=== PATIENT | female | born 1980 | race Asian ===

== ENCOUNTER 2017-05-29 11:56 | Emergency (ER) | payer SELFPAY ==
[~2017-05-29] VITALS: Ht 170.2 cm; Wt 68.0 kg
[2017-05-29 12:18] VITALS: BP_SYST 120
[2017-05-29] MEDS ORDERED: CEPHALEXIN 500 MG CAPSULE PO ONE (14:15)
[2017-05-29] MEDS ORDERED: DIPH-TET-PERTUS Vaccine 0.5 ML VIAL (ADACEL) I.M. ONE (14:15)
[2017-05-29 14:20] VITALS: BP_SYST 120
== END 2017-05-29 14:20 | disposition home or self-care (01) ==
LOC: SED 11:56
DX: L03.114 Cellulitis of left upper limb (principal); R03.0 Elevated blood-pressure reading, without diagnosis of hypertension
CPT/HCPCS: 90715; 99283

== ENCOUNTER 2017-08-27 13:31 | Emergency (ER) | payer MEDICAID ==
[~2017-08-27] VITALS: Ht 170.2 cm; Wt 68.0 kg
[2017-08-27 13:31] VITALS: BP_SYST 120
[2017-08-27 13:58] LABS: BILIRUBIN,URINE NEGATIVE (NEGATIVE); BLOOD, URINE 2+ (NEGATIVE); COLOR,URINE ORANGE (YELLOW); GLUCOSE,URINE 1+ (NEGATIVE); LEUKOCYTE ESTERASE ,URINE 2+ (NEGATIVE)
[2017-08-27 14:08] LABS: UROBILINOGEN,URINE >=8 (0.2-1.0)
[2017-08-27 14:09] LABS: CLARITY/URINE HAZY (CLEAR); KETONES,URINE NEGATIVE (NEGATIVE); NITRITE, URINE NEGATIVE (NEGATIVE); PROTEIN URINE NEGATIVE (NEGATIVE)
[2017-08-27 14:10] LABS: BACTERIA,URINE FEW /HPF (None Seen); MUCUS,URINE None Seen /LPF (None Seen); WBC,URINE 20-50 /HPF (0-3)
[2017-08-27 14:25] VITALS: BP_SYST 120
== END 2017-08-27 14:25 | disposition home or self-care (01) ==
LOC: SED 13:31
DX: N30.00 Acute cystitis without hematuria (principal); R03.0 Elevated blood-pressure reading, without diagnosis of hypertension; Z90.49 Acquired absence of other specified parts of digestive tract
CPT/HCPCS: 81000-TC; 81025; 87086; 87186-TC; 99284

== ENCOUNTER 2017-11-06 11:02 | Emergency (ER) | payer MEDICAID ==
[~2017-11-06] VITALS: Ht 170.2 cm; Wt 65.8 kg
[2017-11-06 11:12] VITALS: BP_SYST 133
[2017-11-06] MEDS ORDERED: cefTRIAXone 1 GM VIAL IM ONE (11:45)
[2017-11-06 13:00] VITALS: BP_SYST 133
== END 2017-11-06 12:59 | disposition home or self-care (01) ==
LOC: SED 11:02
DX: S50.861A Insect bite (nonvenomous) of right forearm, initial encounter (principal); L50.9 Urticaria, unspecified; W57.XXXA Bitten or stung by nonvenomous insect and other nonvenomous arthropods, initial encounter; Y93.89 Activity, other specified; Y92.89 Other specified places as the place of occurrence of the external cause; Y99.8 Other external cause status
CPT/HCPCS: 96372; 99283; J0696

== ENCOUNTER 2017-11-20 15:44 | Emergency (ER) | payer MEDICAID ==
[~2017-11-20] VITALS: Ht 170.2 cm; Wt 65.8 kg
[2017-11-20 16:13] VITALS: BP_SYST 120
--- NOTE | 2017-11-20 17:49 | NUR ---
Patient to ER bed 07 to gown for evaluation. Side rails up.
--- NOTE | 2017-11-20 18:00 | NUR ---
Pt AAOx4 ambulated into ED c/o redness and swelling to L thigh s/p bug bite. Pt denies taking medication. No other injuries/complaints per pt/noted. Will continue to monitor.
--- NOTE | 2017-11-20 18:01 | NUR ---
ER DANIKA Schneider examining patient.
--- NOTE | 2017-11-20 18:02 | NUR ---
Patient given written and verbal discharge instructions and verbalizes understanding. ER [employer] Jenine discussed with patient the results and treatment provided. Patient in stable condition. ID arm band removed. Rx of Hydrocortisone Acetate, Keflex, Benadryl given. Patient educated on pain management and to follow up with PMD. Pain Scale 0. Opportunity for questions provided and answered. Medication side effect fact sheet provided.
[2017-11-20 18:05] VITALS: BP_SYST 119
== END 2017-11-20 18:05 | disposition home or self-care (01) ==
LOC: SED 15:44
DX: S80.862A Insect bite (nonvenomous), left lower leg, initial encounter (principal); L03.116 Cellulitis of left lower limb; W57.XXXA Bitten or stung by nonvenomous insect and other nonvenomous arthropods, initial encounter; Y93.89 Activity, other specified; Y92.89 Other specified places as the place of occurrence of the external cause; Y99.8 Other external cause status
CPT/HCPCS: 99283

== ENCOUNTER 2018-03-19 18:15 | Emergency (ER) | payer MEDICAID ==
[2018-03-20 14:01] LABS: CLARITY/URINE CLOUDY (CLEAR); COLOR,URINE ORANGE (YELLOW); GLUCOSE,URINE NEGATIVE (NEGATIVE); KETONES,URINE TRACE (NEGATIVE); PH,URINE 6.5 (5.0-8.0); PROTEIN URINE 1+ (NEGATIVE)
[2018-03-20 14:02] LABS: BILIRUBIN,URINE NEGATIVE (NEGATIVE); BLOOD, URINE 3+ (NEGATIVE); LEUKOCYTE ESTERASE ,URINE 1+ (NEGATIVE); NITRITE, URINE POSITIVE (NEGATIVE)
[2018-03-20 14:03] LABS: BACTERIA,URINE MODERATE /HPF (None Seen); RBC,URINE >100 /HPF (0-3); WBC,URINE 80-100 /HPF (0-3); YEAST,URINE Few /HPF (None Seen)
== END 2018-03-19 20:00 | disposition home or self-care (01) ==
LOC: SED 18:15
DX: R10.30 Lower abdominal pain, unspecified (principal); Z90.49 Acquired absence of other specified parts of digestive tract
CPT/HCPCS: 81000-TC; 87086; 87186-TC; 99283

== ENCOUNTER 2018-04-12 19:37 | Emergency (ER) | payer MEDICAID ==
[~2018-04-12] VITALS: Ht 170.2 cm; Wt 70.3 kg
[2018-04-12 19:45] VITALS: BP_SYST 127
--- NOTE | 2018-04-12 19:50 | NUR ---
ER Dr. Cevallos at bedside examining patient.
[2018-04-12] MEDS ORDERED: NACL 0.9% 1,000 ML IV ONE (20:00)
[2018-04-12] MEDS ORDERED: DEXAMETHASONE SOD PHOSPHATE 10 MG/ML VIAL IVP ONE (20:00)
--- NOTE | 2018-04-12 20:32 | NUR ---
Patient to ER bed 5 to gown for evaluation. Side rails up. Report given to ISMAEL FOX.
--- NOTE | 2018-04-12 20:33 | NUR ---
Pt came in to ED C/O hives / rashes all over body, more significant R Upper body. VSS, No S/S of acute distress. No other injuries and complaints noted or observed. Resting on gurney with rails up
[2018-04-12 20:47] VITALS: BP_SYST 127
--- NOTE | 2018-04-12 20:47 | NUR ---
Patient given written and verbal discharge instructions and verbalizes understanding. ER MD discussed with patient the results and treatment provided. Patient in stable condition. ID arm band removed. Rx of Medrol given. Patient educated on pain management and to follow up with PMD. Pain Scale 0/10. Opportunity for questions provided and answered. Medication side effect fact sheet provided.
== END 2018-04-12 20:47 | disposition home or self-care (01) ==
LOC: SED 19:37
DX: L50.9 Urticaria, unspecified (principal); Z80.3 Family history of malignant neoplasm of breast; Z90.49 Acquired absence of other specified parts of digestive tract
CPT/HCPCS: 81025; 93005; 99283; J1100

== ENCOUNTER 2018-08-01 18:39 | Emergency (ER) | payer MEDICAID ==
[~2018-08-01] VITALS: Ht 170.2 cm; Wt 70.3 kg
[2018-08-01 18:50] VITALS: BP_SYST 136
[2018-08-01 20:02] VITALS: BP_SYST 118
[2018-08-05] MEDS ORDERED: DIPHENHYDRAMINE INJ 50 MG/ML VIAL IM ONE (15:45)
== END 2018-08-01 20:02 | disposition home or self-care (01) ==
LOC: SED 18:39
DX: S80.862A Insect bite (nonvenomous), left lower leg, initial encounter (principal); S80.861A Insect bite (nonvenomous), right lower leg, initial encounter; L03.116 Cellulitis of left lower limb; L03.115 Cellulitis of right lower limb; R03.0 Elevated blood-pressure reading, without diagnosis of hypertension; Z90.49 Acquired absence of other specified parts of digestive tract; W57.XXXA Bitten or stung by nonvenomous insect and other nonvenomous arthropods, initial encounter; Y93.89 Activity, other specified; Y92.096 Garden or yard of other non-institutional residence as the place of occurrence of the external cause; Y99.8 Other external cause status
CPT/HCPCS: 81025; 99283

== ENCOUNTER 2018-12-31 17:57 | Emergency (ER) | payer MEDICAID ==
[~2018-12-31] VITALS: Ht 167.6 cm; Wt 74.8 kg
[2018-12-31 18:40] VITALS: BP_SYST 124
[2018-12-31] MEDS ORDERED: IBUPROFEN 600 MG TABLET PO ONE (20:30)
[2018-12-31 21:17] LABS: HCG,QUAL RESULT NEGATIVE (NEGATIVE)
[2018-12-31 21:22] VITALS: BP_SYST 126
[2018-12-31 21:23] LABS: BILIRUBIN,URINE NEGATIVE (NEGATIVE); BLOOD, URINE NEGATIVE (NEGATIVE); CLARITY/URINE CLEAR (CLEAR); COLOR,URINE YELLOW (YELLOW); GLUCOSE,URINE NEGATIVE (NEGATIVE); KETONES,URINE NEGATIVE (NEGATIVE); LEUKOCYTE ESTERASE ,URINE 1+ (NEGATIVE); NITRITE, URINE NEGATIVE (NEGATIVE); PH,URINE 6.5 (5.0-8.0); PROTEIN URINE NEGATIVE (NEGATIVE); UROBILINOGEN,URINE 0.2 (0.2-1.0)
[2018-12-31 21:32] LABS: BACTERIA,URINE FEW /HPF (None Seen); MUCUS,URINE None Seen /LPF (None Seen); RBC,URINE 0-3 /HPF (0-3)
== END 2018-12-31 21:22 | disposition home or self-care (01) ==
LOC: SED 17:57
DX: J02.8 Acute pharyngitis due to other specified organisms (principal); B97.89 Other viral agents as the cause of diseases classified elsewhere; N39.0 Urinary tract infection, site not specified
CPT/HCPCS: 36415; 81000-TC; 84703; 86403; 87081; 87086; 99283

== ENCOUNTER 2019-05-12 12:08 | Emergency (ER) | payer MEDICAID ==
[~2019-05-12] VITALS: Ht 170.2 cm; Wt 79.4 kg
[2019-05-12 12:08] VITALS: BP_SYST 142
[2019-05-12 12:58] VITALS: BP_SYST 132
== END 2019-05-12 12:58 | disposition home or self-care (01) ==
LOC: SED 12:08
DX: R07.89 Other chest pain (principal); Z90.49 Acquired absence of other specified parts of digestive tract
CPT/HCPCS: 93005; 99283

== ENCOUNTER 2019-10-27 20:01 | Emergency (ER) | payer OTHER, MEDICAID ==
[~2019-10-27] VITALS: Ht 170.2 cm; Wt 81.6 kg
[2019-10-27 20:01] VITALS: BP_SYST 157
--- NOTE | 2019-10-27 20:20 | NUR ---
Patient to ER bed 6 to gown for evaluation. Side rails up. Report given to CINTHYA.
--- NOTE | 2019-10-27 20:24 | NUR ---
ER Dr. Lopez at bedside examining patient.
--- NOTE | 2019-10-27 20:25 | NUR ---
pt a&o x4 c/o of right hand numbness that started around 7pm tonight. pt states she does not know what may have caused the numbness, it started randomly. pt denies the numbness radiating up her arm or to any other place on body. pt states she took 2 over the counter benadryl around 7pm. pts right hand appears swollen. pt is able to open and close hand, twist wrist normally. pt states she types a lot on the computer normally. pt denies weakness to one side more than the other, blurry vision, slurred speech.
--- NOTE | 2019-10-27 20:37 | NUR ---
Blood for labwork drawn from [facility] Patient tolerated WELL.
--- NOTE | 2019-10-27 20:40 | NUR ---
URINE TEST NEGATIVE. AWARE.
[2019-10-27 20:51] LABS: BILIRUBIN,URINE NEGATIVE (NEGATIVE); CLARITY/URINE OTHER (CLEAR); GLUCOSE,URINE NEGATIVE (NEGATIVE); KETONES,URINE NEGATIVE (NEGATIVE); LEUKOCYTE ESTERASE ,URINE 1+ (NEGATIVE); NITRITE, URINE NEGATIVE (NEGATIVE); PH,URINE 6.5 (5.0-8.0); PROTEIN URINE NEGATIVE (NEGATIVE); UROBILINOGEN,URINE 0.2 (0.2-1.0)
[2019-10-27 20:55] LABS: BASOPHILS # (AUTO) 0.1 K/uL (0.0-0.2); BASOPHILS % (AUTO) 0.9 % (0.0-2.0); EOSINOPHILS # (AUTO) 0.2 K/uL (0.0-0.4); EOSINOPHILS % (AUTO) 1.9 % (0.0-4.0); HEMATOCRIT 39.9 % (36-48); LYMPHOCYTES # (AUTO) 2.2 K/uL (1.0-5.5); LYMPHOCYTES % (AUTO) 20.5 % (20.5-51.5); MEAN CORPUSCULAR HEMOGLOBIN 26 pg (27-31); MEAN CORPUSCULAR HGB CONC 33 % (32-36); MEAN CORPUSCULAR VOLUME 80 fL (79.0-98.0); MONOCYTES # (AUTO) 0.5 K/uL (0.0-1.0); MONOCYTES % (AUTO) 4.9 % (1.7-9.3); NEUTROPHILS # (AUTO) 7.9 K/uL (1.8-7.7); NEUTROPHILS % (AUTO) 71.8 % (40.0-70.0); PLATELET COUNT (AUTO) 321 K/uL (130-430); RED CELL DISTRIBUTION WIDTH 14.5 % (9.0-15.0); WHITE BLOOD COUNT (AUTO) 10.9 K/uL (4.8-10.8)
[2019-10-27 21:03] LABS: BLOOD, URINE NEGATIVE (NEGATIVE); COLOR,URINE YELLOW (YELLOW)
[2019-10-27 21:06] LABS: RBC,URINE NONE SEEN /HPF (0-3)
[2019-10-27 21:07] LABS: BACTERIA,URINE None Seen /HPF (None Seen)
[2019-10-27 21:10] LABS: ANION GAP 4 (5-15); CALCIUM 8.3 mg/dL (8.4-11.0); CHLORIDE 100 mmol/L (98-107); CREATININE 1.05 mg/dL (0.55-1.30); GLUCOSE 115 mg/dL (70-99); POTASSIUM 3.7 mmol/L (3.5-5.1); SODIUM SERUM 132 mmol/L (136-145); UREA NITROGEN, BLOOD 15 mg/dL (8-21)
[2019-10-27 21:11] LABS: BARBITURATE, URINE NEGATIVE (NEG <=200); BENZODIAZEPINE, URINE NEGATIVE (NEG <=150); CANNABINOID, URINE NEGATIVE (NEG <=50); COCAINE, URINE POSITIVE (NEG <=150); METHAMPHETAMINES SCREEN,URINE NEGATIVE (NEG <=500); OPIATE, URINE NEGATIVE (NEG <=100); PHENCYCLIDINE SCREEN,URINE NEGATIVE (NEG <=25); UR TRICYCLIC ANTIDEPRESSANTS NEGATIVE (NEG <=300); URINE AMPHETAMINE NEGATIVE (NEG <=500); URINE METHADONE NEGATIVE (NEG <=200); URINE OXYCODONE SCREEN NEGATIVE (NEG <=100); URINE PROPOXYPHENE SCREEN NEGATIVE (NEG <=300)
[2019-10-27 21:14] LABS: GFR AFRICAN AMERICAN 75 mL/min (>90)
[2019-10-27 21:15] LABS: ALANINE AMINOTRANSFERASE 33 U/L (12-78); ALBUMIN 3.4 g/dL (3.4-4.8); ASPARTATE AMINOTRANSFERASE 27 U/L (10-37); TOTAL BILIRUBIN 0.4 mg/dL (0.0-1.0)
--- NOTE | 2019-10-27 21:20 | NUR ---
Patient transported to radiology via WALKING, accompanied by STAFF.
[2019-10-27 22:03] LABS: C-REACTIVE PROTEIN QUANT < 0.2 mg/dL (0-0.5)
[2019-10-27 22:30] VITALS: BP_SYST 136
[2019-10-27] MEDS ORDERED: cefTRIAXone 1 GM in LIDOCAINE 1%, 20 ML MDV 2.1 ML IM ONE (22:30)
[2019-10-27] MEDS ORDERED: cephALEXin 500 MG CAPSULE PO ONE (22:30)
--- NOTE | 2019-10-27 22:30 | NUR ---
Patient given written and verbal discharge instructions and verbalizes understanding. ER MD discussed with patient the results and treatment provided. Patient in stable condition. ID arm band removed. Rx of KEFLEX given. Patient educated on pain management and to follow up with PMD. Pain Scale 0/10. Opportunity for questions provided and answered. Medication side effect fact sheet provided.
[2019-10-27] MEDS ORDERED: cephALEXin 500 MG CAPSULE ONE (22:42)
[2019-10-27 22:57] LABS: ERYTHROCYTE SEDIMENTATION RATE 4 MM/HR (0-20)
== END 2019-10-27 22:30 | disposition home or self-care (01) ==
LOC: SED 20:01
DX: N39.0 Urinary tract infection, site not specified (principal); F14.90 Cocaine use, unspecified, uncomplicated
CPT/HCPCS: 36415; 70450-TC; 80053; 80307; 81000-TC; 81025; 83880; 85025; 85651-TC; 86140; 99285

== ENCOUNTER 2019-12-06 02:11 | Emergency (ER) | payer OTHER, MEDICAID ==
[~2019-12-06] VITALS: Ht 170.2 cm; Wt 81.6 kg
[2019-12-06 02:19] VITALS: BP_SYST 150
[2019-12-06] MEDS ORDERED: PANTOPRAZOLE SODIUM 40 MG/VIAL (PROTONIX) IVP ONE (02:45)
[2019-12-06] MEDS ORDERED: NACL 0.9% 1,000 ML IV ONE (02:45)
[2019-12-06] MEDS ORDERED: KETOROLAC TROMETHAMINE 30 MG VIAL IVP ONE (02:45)
[2019-12-06] MEDS ORDERED: ONDANSETRON HCL 4 MG/2 ML VIAL IVP ONE (02:45)
[2019-12-06 02:51] LABS: BASOPHILS % (AUTO) 0.1 % (0.0-2.0); EOSINOPHILS # (AUTO) 0.1 K/uL (0.0-0.4); EOSINOPHILS % (AUTO) 0.8 % (0.0-4.0); HEMATOCRIT 38.5 % (36-48); HEMOGLOBIN 12.8 g/dL (12.0-16.0); LYMPHOCYTES % (AUTO) 13.7 % (20.5-51.5); MEAN CORPUSCULAR HEMOGLOBIN 27 pg (27-31); MEAN CORPUSCULAR HGB CONC 33 % (32-36); MEAN CORPUSCULAR VOLUME 80 fL (79.0-98.0); MONOCYTES # (AUTO) 0.2 K/uL (0.0-1.0); MONOCYTES % (AUTO) 3.1 % (1.7-9.3); NEUTROPHILS # (AUTO) 6.3 K/uL (1.8-7.7); NEUTROPHILS % (AUTO) 82.3 % (40.0-70.0); PLATELET COUNT (AUTO) 253 K/uL (130-430); RED BLOOD CELL COUNT(AUTO) 4.81 MIL/uL (4.2-6.2); RED CELL DISTRIBUTION WIDTH 14.4 % (9.0-15.0); WHITE BLOOD COUNT (AUTO) 7.7 K/uL (4.8-10.8)
[2019-12-06 03:05] LABS: CALCIUM 8.5 mg/dL (8.4-11.0); CREATININE 0.8 mg/dL (0.55-1.30); POTASSIUM 3.4 mmol/L (3.5-5.1)
[2019-12-06 03:11] LABS: ALBUMIN 3.8 g/dL (3.4-4.8); TOTAL BILIRUBIN 0.8 mg/dL (0.0-1.0)
[2019-12-06 04:10] VITALS: BP_SYST 150
[2019-12-06] MEDS ORDERED: MORPHINE 2 MG/ML INJ. SYRINGE IVP ONE (04:15)
== END 2019-12-06 04:10 | disposition home or self-care (01) ==
LOC: SED 02:11
DX: A08.4 Viral intestinal infection, unspecified (principal); Z90.49 Acquired absence of other specified parts of digestive tract
CPT/HCPCS: 36415; 74021; 80053; 83690; 85025; 96361; 96374; 96375; 99284; C9113; J1885; J2270; J2405; J7030

== ENCOUNTER 2020-08-03 11:16 | Emergency (ER) | payer MEDICAID, OTHER ==
[~2020-08-03] VITALS: Ht 170.2 cm; Wt 86.2 kg
[2020-08-03 11:16] VITALS: BP_SYST 137
== END 2020-08-03 12:37 | disposition home or self-care (01) ==
LOC: SED 11:16
DX: M94.0 Chondrocostal junction syndrome [Tietze] (principal)
CPT/HCPCS: 71045; 93005; 99283

== ENCOUNTER 2021-02-10 07:13 | Emergency (ER) | payer MEDICAID ==
[~2021-02-10] VITALS: Ht 170.2 cm; Wt 81.6 kg
[2021-02-10 07:13] VITALS: BP_SYST 189
--- NOTE | 2021-02-10 07:14 | NUR ---
PT OUTSIDE IN TRIAGE TENT, TRIAGED. AWAITING ER BED AVAILABILITY
--- NOTE | 2021-02-10 07:44 | NUR ---
DR VOGT AT BEDSIDE FOR EVALUATION
[2021-02-10] MEDS ORDERED: IPRATROPIUM/ALBUTEROL SULFATE 3 ML AMPUL.NEB (DUONEB) INH ONE (08:00)
--- NOTE | 2021-02-10 08:01 | NUR ---
RESP CALLED AWARE OF [facility] [place], SVETA TO LAB
--- NOTE | 2021-02-10 08:26 | NUR ---
[facility] to lab
[2021-02-10 08:56] LABS: ANION GAP 7 (5-15); CALCIUM 8.3 mg/dL (8.4-11.0); CHLORIDE 101 mmol/L (98-107); CREATININE 0.85 mg/dL (0.55-1.30); GLUCOSE 103 mg/dL (70-99); POTASSIUM 3.7 mmol/L (3.5-5.1); SODIUM SERUM 134 mmol/L (136-145); UREA NITROGEN, BLOOD 9 mg/dL (8-21)
[2021-02-10 09:00] LABS: GFR AFRICAN AMERICAN 95 mL/min (>90)
[2021-02-10 09:05] LABS: ALANINE AMINOTRANSFERASE 56 U/L (12-78); ALBUMIN 3.3 g/dL (3.4-4.8); ASPARTATE AMINOTRANSFERASE 46 U/L (10-37); TOTAL BILIRUBIN 0.2 mg/dL (0.0-1.0)
[2021-02-10 09:10] LABS: BASOPHILS % (AUTO) 0.5 % (0.0-2.0); EOSINOPHILS # (AUTO) 0.5 K/uL (0.0-0.4); HEMATOCRIT 31.8 % (36-48); HEMOGLOBIN 10.2 g/dL (12.0-16.0); LYMPHOCYTES # (AUTO) 0.8 K/uL (1.0-5.5); LYMPHOCYTES % (AUTO) 24.6 % (20.5-51.5); MEAN CORPUSCULAR HEMOGLOBIN 24 pg (27-31); MEAN CORPUSCULAR HGB CONC 32 % (32-36); MEAN CORPUSCULAR VOLUME 74 fL (79.0-98.0); MONOCYTES # (AUTO) 0.5 K/uL (0.0-1.0); MONOCYTES % (AUTO) 13.7 % (1.7-9.3); NEUTROPHILS # (AUTO) 1.5 K/uL (1.8-7.7); NEUTROPHILS % (AUTO) 45.2 % (40.0-70.0); PLATELET COUNT (AUTO) 222 K/uL (130-430); RED BLOOD CELL COUNT(AUTO) 4.29 MIL/uL (4.2-6.2); RED CELL DISTRIBUTION WIDTH 14.9 % (9.0-15.0)
[2021-02-10 09:23] LABS: WHITE BLOOD COUNT (AUTO) 3.3 K/uL (4.8-10.8)
[2021-02-10] MEDS ORDERED: ALBMDI INH (10:26)
[2021-02-10] MEDS ORDERED: BENZ-16 PO (10:26)
[2021-02-10] MEDS ORDERED: PRED20TA PO (10:26)
[2021-02-10 10:33] VITALS: BP_SYST 122
--- NOTE | 2021-02-10 10:34 | NUR ---
Patient given written and verbal discharge instructions and verbalizes understanding. ER MD donovan discussed with patient the results and treatment provided. Patient in stable condition. ID arm band removed. Rx of albuterolol, tessalon perle, prednisone given. Patient educated on pain management and to follow up with PMD. Pain Scale 0. Opportunity for questions provided and answered. Medication side effect fact sheet provided.
== END 2021-02-10 10:34 | disposition home or self-care (01) ==
LOC: SED 07:13
DX: R05.9 Cough, unspecified (principal); I10 Essential (primary) hypertension; E11.9 Type 2 diabetes mellitus without complications; Z79.899 Other long term (current) drug therapy; Z20.822 Contact with and (suspected) exposure to COVID-19
CPT/HCPCS: 36415; 71045; 80053; 84484; 85025; 86710; 93005; 94640; 99285